=== PATIENT | female | born 1990 | race Caucasian/White ===

== ENCOUNTER → 2019-07-23 | Outpatient (CLI) | payer OTHER ==
--- NOTE | 2019-07-24 07:21 | REP ---
RIGHT KNEE, FIVE VIEWS: There is no evidence of an acute fracture, dislocation or intrinsic bone disease. IMPRESSION: No fracture or dislocation. Electronically Signed by Abdon Obrien MD 07/25/2019 09:45 A
== END ==
LOC: M WUC 12:22
PROVIDERS: ATTEND Physician Assistant
DX: M25.561 Pain in right knee (principal); W01.0XXA Fall on same level from slipping, tripping and stumbling without subsequent striking against object, initial encounter; Y92.89 Other specified places as the place of occurrence of the external cause; Y93.9 Activity, unspecified; Y99.9 Unspecified external cause status

== ENCOUNTER → 2021-09-13 | Outpatient (REF) | payer OTHER | LOC: M WUC 22:42 | PROVIDERS: ATTEND Physician Assistant | DX: R30.0 Dysuria (principal) ==

== ENCOUNTER 2022-07-19 17:51 | Emergency (ER) | payer OTHER ==
[~2022-07-19] VITALS: Ht 157.5 cm; Wt 58.9 kg
[2022-07-19 17:52] VITALS: BP 126/82
[2022-07-19] MEDS ORDERED: OCEL3TAB (17:59)
[2022-07-19] MEDS ORDERED: LIDOCAINE 1% MDV 20ML VIAL SC ONE (19:35)
== END 2022-07-19 20:22 | disposition home or self-care (01) ==
LOC: M ED 17:51
DX: S61.412A Laceration without foreign body of left hand, initial encounter (principal); W26.0XXA Contact with knife, initial encounter; Z79.3 Long term (current) use of hormonal contraceptives